=== PATIENT | male | born 1995 | race Caucasian/White ===

== ENCOUNTER 2018-06-07 08:20 | Emergency (ER) | payer OTHER ==
[2018-06-07 08:22] VITALS: RESP 20; TEMP 98.7
--- NOTE | 2018-06-07 09:49 | ED PDOC ---
HPI: Male Pain Time Seen by Provider: 06/07/18 08:39 Chief Complaint (Nursing): Male Genitourinary Chief Complaint (Provider): Penis swelling History Per: Patient History/Exam Limitations: no limitations Onset/Duration Of Symptoms: Hrs (this morning) Current Symptoms Are (Timing): Still Present Associated Symptoms: denies: Fever, Chills, Back Pain, Other (testicular pain) Additional Complaint(s): Rae Blandon is a 23 year old male, with no significant past medical history, who presents to the emergency department for evaluation of penile swelling onset since this morning. Patient states he had sexual intercourse with partner at 04:00, he went to sleep but when he got up to go to the bathroom he noticed the swelling. Patient states it is painful to touch but was able to urinate. No similar symptoms in the past. He denies any testicular pain, trauma or injuries , fever, chills, back pain, or abdominal pain. No further medical complaints PMD: None provided. Past Medical History Reviewed: Historical Data, Nursing Documentation, Vital Signs Vital Signs: Last Vital Signs Temp 98.7 F 06/07/18 08:22 Pulse 99 H 06/07/18 08:22 Resp 20 06/07/18 08:22 BP 140/87 06/07/18 08:22 Pulse Ox 98 06/07/18 08:22 - Medical History PMH: No Chronic Diseases - Surgical History Surgical History: No Surg Hx - Family History Family History: States: Unknown Family Hx - Immunization History Hx Tetanus Toxoid Vaccination: No Hx Influenza Vaccination: No Hx Pneumococcal Vaccination: No - Allergies Allergies/Adverse Reactions: Allergies Allergy/AdvReac Type Severity Reaction Status Date / Time No Known Allergies Allergy Verified 06/07/18 08:33 Review of Systems ROS Statement: Except As Marked, All Systems Reviewed And Found Negative Constitutional: Negative for: Fever, Chills Gastrointestinal: Negative for: Abdominal Pain Genitourinary Male: Positive for: Penile Pain (to palpation), Other (penile swelling ). Negative for: Scrotal Pain Musculoskeletal: Negative for: Back Pain Physical Exam - Reviewed Nursing Documentation Reviewed: Yes Vital Signs Reviewed: Yes - Physical Exam Appears: Positive for: No Acute Distress Head Exam: Positive for: ATRAUMATIC, NORMOCEPHALIC Skin: Positive for: Normal Color, Warm, Dry Eye Exam: Positive for: Normal appearance Neck: Positive for: Painless ROM Cardiovascular/Chest: Positive for: Regular Rate, Rhythm. Negative for: Murmur Respiratory: Positive for: Normal Breath Sounds. Negative for: Respiratory Distress Gastrointestinal/Abdominal: Positive for: Normal Exam, Soft. Negative for: Tenderness, Guarding, Rebound Male Genital Exam: Positive for: other (Swelling of the foreskin. Penis and shaft appears normal. Advanced Practice Registered Nurse: DEVON Kumar). Negative for: testicular tenderness (R), testicular tenderness (L) Back: Positive for: Normal Inspection. Negative for: L CVA Tenderness, R CVA Tenderness, Vertebral Tenderness Extremity: Positive for: Normal ROM (upper and lower extremities). Negative for : Deformity, Swelling Neurologic/Psych: Positive for: Alert, Oriented - ECG O2 Sat by Pulse Oximetry: 98 (RA) Pulse Ox Interpretation: Normal Medical Decision Making Medical Decision Making: Time: 08:39 Initial Impression: Paraphimosis Initial Plan: Apply pressure dressing on glans Apply ice --Reevaluation 13:55 -Paraphimosis resolved after application of ice, pressure pressin,g and manipulation of foreskin. He reports no pain or difficulty urinating. Swelling is reduced 14:00 -Upon provider reevaluation patient is feeling better, is medically stable, and requires no further treatment in the ED at this time. Patient will be discharged home. Counseling was provided and all questions were answered regarding diagnosis. There is agreement to discharge plan. Return if symptoms persist or worsen. ----- Scribe Attestation: Documented by Manuel Hobbs, acting as a scribe for Sharon Figueroa MD. Provider Scribe Attestation: All medical record entries made by the Scribe were at my direction and personally dictated by me. I have reviewed the chart and agree that the record accurately reflects my personal performance of the history, physical exam, medical decision making, and the department course for this patient. I have also personally directed, reviewed, and agree with the discharge instructions and disposition. Disposition - Clinical Impression Clinical Impression: Paraphimosis - Patient ED Disposition Is Patient to be Admitted: No Counseled Patient/Family Regarding: Studies Performed, Diagnosis, Need For Followup - Disposition Referrals: formerly [facility] [Outside] Disposition: Routine/Home Disposition Time: 14:00 Condition: GOOD Additional Instructions: RAE BLANDON, thank you for letting us take care of you today. Your provider was Sharon Figueroa MD and you were treated for MALE GENITOURINARY. The emergency medical care you received today was directed at your acute symptoms. If you were prescribed any medication, please fill it and take as directed. It may take several days for your symptoms to resolve. Return to the Emergency Department if your symptoms worsen, do not improve, or if you have any other problems. Please contact your doctor or call one of the physicians/clinics you have been referred to that are listed on the Patient Visit Information form that is included in your discharge packet. Bring any paperwork you were given at discharge with you along with any medications you are taking to your follow up visit. Our treatment cannot replace ongoing medical care by a primary care provider outside of the emergency department. Thank you for allowing the [facility] team to be part of your care today. If you had an X-Ray or CT scan: A Radiologist will review the ED reading if any change in treatment is needed we will contact you. If you had a blood, urine, or wound culture: It will take several days for the results, if any change in treatment is needed we will contact you. If you had an STI test: It will take 48 hours for the results. Please call after 1 week if you have not heard back.
[2018-06-07 14:08] VITALS: BP 130/70; PULSE 87
[2018-06-09 15:58] VITALS: O2SAT 98
== END 2018-06-07 14:06 | disposition home or self-care (01) ==
LOC: H.ER 08:20
DX: N47.2 Paraphimosis (principal)